=== PATIENT | female | born 1980 | race Two or more races ===

== ENCOUNTER 2017-12-04 18:00 | Emergency (ER) | payer OTHER ==
[2017-12-04 18:16] VITALS: O2SAT 99
[2017-12-04] MEDS ORDERED: NS 1,000 ML IV ONE (18:17)
--- NOTE | 2017-12-04 18:17 | EDPHY ---
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 Patient reports that she has had pain in her upper abdomen a burning sensation since yesterday. No vomiting no diarrhea. Denies chest pain or shortness of breath denies fever. She states she has had this in the past was diagnosed with gastritis. Given a prescription for Zantac however the pain is now worse. She has been taking Zantac for 2 months. She denies any bloody stools or black tarry stools. She presents to the emergency room stating that her pain is 7/10. Located mid abdomen. Burning in sensation. Past Medical History: Gastritis Past Surgical History: Social History: Denies drugs alcohol tobacco. Family History: Noncontributory ROS REVIEW OF SYSTEMS: A comprehensive 10 point review of systems is otherwise negative aside from elements mentioned in the history of present illness. Exam Constitutional appears nontoxic triage nursing summary reviewed, vital signs reviewed, awake/alert. Eyes normal conjunctivae and sclera, EOMI, PERRLA. HENT normal inspection, atraumatic, moist mucus membranes, no epistaxis, neck supple/ no meningismus, no raccoon eyes. Respiratory clear to auscultation bilaterally, normal breath sounds, no respiratory distress, no wheezing. Cardiovascular rate normal, regular rhythm, no murmur, no edema, distal pulses normal. Gastrointestinal mild tender palpation mid abdomen,, no rebound, no guarding, normal bowel sounds, no distension, no pulsatile mass. Genitourinary no CVA tenderness. Musculoskeletal no midline vertebral tenderness, full range of motion, no calf swelling, no tenderness of extremities, no meningismus, good pulses, neurovascularly intact. Skin pink, warm, & dry, no rash, skin atraumatic. Neurologic awake, alert and oriented x 3, AAOx3, moves all 4 extremities equally, motor intact, sensory intact, CN II-XII intact, normal cerebellar, normal vision, normal speech. Psychiatric normal mood/affect. Heme/Lymph/Immune no lymphadenopathy. Differential diagnosis includes but is not limited to and in no particular order : Gastritis, esophagitis, peptic ulcer disease Bowel obstruction, appendicitis , gallbladder disease, diverticulitis, colitis, enteritis, perforated viscus, gastritis, GERD, esophagitis, urinary tract infection, pyelonephritis, kidney stones Medical Decision Making: Plan for this patient IV establishment blood draw, IV Pepcid, 1 g of Carafate, GI cocktail re-evaluate. Check basic blood work. Re-evaluation: 1918: Patient re-evaluated still has ongoing abdominal pain mildly tender mid abdomen however improved after GI cocktail. Resting comfortably. CT scan abdomen pelvis with IV contrast negative for acute inflammatory process. No evidence of acute appendicitis. Called to me by Dr. Doe 2028: Re-examination at this time: Patient is resting comfortably. Abdomen is soft nontender she is not vomiting she feels much better after Carafate and GI cocktail. Blood work and CT scan have been reviewed. I will add Carafate at night. I do recommend she refrain from drinking alcohol eating spicy fatty greasy foods. I do recommend she follows up with GI. Return precautions discussed with her she has worsening abdominal pain fever vomiting she needs return. She understands. at bedside understands. Source: Patient - Personal History LMP (Females 10-55): 15-21 Days Ago Current Tetanus Diphtheria and Acellular Pertussis (TDAP): Yes - Medical/Surgical History Other PMH: gastritis - Social History Smoking Status: Never smoked Constitutional: Initial Vital Signs Temperature (C) 36.6 C 12/04/17 18:03 Heart Rate 71 12/04/17 18:03 Respiratory Rate 18 12/04/17 18:03 Blood Pressure 116/72 12/04/17 18:03 O2 Sat (%) 99 12/04/17 18:03 O2 Delivery Mode Room Air Allergies/Adverse Reactions: No Known Allergies Allergy (Unverified 12/04/17 18:16) Home Medications: Medication Instructions Recorded Ranitidine HCl [Zantac 75] 75 mg PO 12/04/17 Ranitidine HCl [Zantac] 150 mg PO DAILY #30 tablet 12/04/17 Sucralfate [Carafate 1 GM (*)] 1 gm PO ACHS #30 tab 12/04/17 Medical Decision Making - Diagnostics Imaging Results: Imaging Impressions Abdomen CT 12/04/17 19:18 Impression: 1. No localized intra-abdominal process or clear explanation for pain. No CT evidence of pancreatitis. 2. Equivocal gallbladder wall thickening. No CT evidence of acute cholecystitis. Findings discussed with Emergency Department physician, Dr. Ki Villagran on December 04, 2017 at 2017 hours. - Data Points Laboratory Results: Laboratory Results 12/04/17 18:28 12/04/17 18:28 12/04/17 12/04/17 12/04/17 20:04 18:28 18:28 WBC RBC Hgb Hct MCV MCH MCHC RDW Plt Count MPV Neut % (Auto) Lymph % (Auto) Sandoval % (Auto) Eos % (Auto) Baso % (Auto) Nucleat RBC Rel Count Absolute Neuts (auto) Absolute Lymphs (auto) Absolute Monos (auto) Absolute Eos (auto) Absolute Basos (auto) Absolute Nucleated RBC Immature Gran % Immature Gran # VBG Lactic Acid Sodium 142 mEq/L mEq/L (135-145) Potassium 3.8 mEq/L mEq/L (3.5-5.2) Chloride 102 mEq/L mEq/L (97-110) Carbon Dioxide 28 mEq/l mEq/l (22-31) Anion Gap 12 mEq/L mEq/L (8-16) BUN 8 mg/dL mg/dL (7-23) Creatinine 0.6 mg/dL mg/dL (0.6-1.0) Estimated GFR > 60 Glucose 80 mg/dL mg/dL (70-100) Calcium 9.3 mg/dL mg/dL (8.5-10.4) Total Bilirubin 0.3 mg/dL mg/dL (0.1-1.4) Conjugated Bilirubin 0.2 mg/dL mg/dL (0.0-0.5) Unconjugated Bilirubin 0.1 mg/dL mg/dL (0.0-1.1) AST 23 IU/L IU/L (14-46) ALT 35 IU/L IU/L (9-52) Alkaline Phosphatase 84 IU/L IU/L (38-126) Total Protein 7.5 g/dL g/dL (6.3-8.2) Albumin 4.3 g/dL g/dL (3.5-5.0) Lipase 74 IU/L IU/L (23-300) Beta HCG, Qual NEGATIVE Urine Color PALE YELLOW Urine Appearance CLEAR Urine pH 6.0 (5.0-7.5) Ur Specific Bradford > 1.035 H (1.002-1.030) Urine Protein NEGATIVE (NEGATIVE) Urine Ketones NEGATIVE (NEGATIVE) Urine Blood NEGATIVE (NEGATIVE) Urine Nitrate NEGATIVE (NEGATIVE) Urine Bilirubin NEGATIVE (NEGATIVE) Urine Urobilinogen NEGATIVE EU EU (0.2-1.0) Ur Leukocyte Esterase NEGATIVE (NEGATIVE) Urine Glucose NEGATIVE (NEGATIVE) 12/04/17 12/04/17 18:28 18:28 WBC 9.72 10^3/uL H 10^3/uL (3.80-9.50) RBC 5.13 10^6/uL 10^6/uL (4.18-5.33) Hgb 14.2 g/dL g/dL (12.6-16.3) Hct 42.7 % % (38.0-47.0) MCV 83.2 fL fL (81.5-99.8) MCH 27.7 pg L pg (27.9-34.1) MCHC 33.3 g/dL g/dL (32.4-36.7) RDW 13.4 % % (11.5-15.2) Plt Count 269 10^3/uL 10^3/uL (150-400) MPV 10.8 fL fL (8.7-11.7) Neut % (Auto) 59.0 % % (39.3-74.2) Lymph % (Auto) 30.3 % % (15.0-45.0) Sandoval % (Auto) 6.5 % % (4.5-13.0) Eos % (Auto) 3.4 % % (0.6-7.6) Baso % (Auto) 0.6 % % (0.3-1.7) Nucleat RBC Rel Count 0.0 % % (0.0-0.2) Absolute Neuts (auto) 5.73 10^3/uL 10^3/uL (1.70-6.50) Absolute Lymphs (auto) 2.95 10^3/uL 10^3/uL (1.00-3.00) Absolute Monos (auto) 0.63 10^3/uL 10^3/uL (0.30-0.80) Absolute Eos (auto) 0.33 10^3/uL 10^3/uL (0.03-0.40) Absolute Basos (auto) 0.06 10^3/uL 10^3/uL (0.02-0.10) Absolute Nucleated RBC 0.00 10^3/uL 10^3/uL (0-0.01) Immature Gran % 0.2 % % (0.0-1.1) Immature Gran # 0.02 10^3/uL 10^3/uL (0.00-0.10) VBG Lactic Acid 1.1 mmol/L mmol/L (0.7-2.1) Sodium Potassium Chloride Carbon Dioxide Anion Gap BUN Creatinine Estimated GFR Glucose Calcium Total Bilirubin Conjugated Bilirubin Unconjugated Bilirubin AST ALT Alkaline Phosphatase Total Protein Albumin Lipase Beta HCG, Qual Urine Color Urine Appearance Urine pH Ur Specific Bradford Urine Protein Urine Ketones Urine Blood Urine Nitrate Urine Bilirubin Urine Urobilinogen Ur Leukocyte Esterase Urine Glucose Medications Given: Discontinued Medications Al Hydroxide/Mg Hydroxide (Maalox Susp) 30 ml PO ONCE ONE Stop: 12/04/17 18:24 Last Admin: 12/04/17 18:32 Dose: 30 ml Famotidine (Pepcid) 20 mg IVP EDNOW ONE Stop: 12/04/17 18:24 Last Admin: 12/04/17 18:33 Dose: 20 mg Hyoscyamine Sulfate (Levsin, Hyomax-Sl) 0.25 mg PO ONCE ONE Stop: 12/04/17 18:24 Last Admin: 12/04/17 18:32 Dose: 0.25 mg Sodium Chloride (Ns) 1,000 mls @ 0 mls/hr IV EDNOW ONE; Wide Open PRN Reason: Protocol Stop: 12/04/17 18:18 Last Admin: 12/04/17 18:34 Dose: 1,000 mls Lidocaine (Lidocaine 2% Viscous) 15 ml PO ONCE ONE Stop: 12/04/17 18:24 Last Admin: 12/04/17 18:32 Dose: 15 ml Sucralfate (Carafate) 1 gm PO ONCE ONE Stop: 12/04/17 18:37 Last Admin: 12/04/17 19:00 Dose: 1 gm Departure - Departure Disposition: Home, Routine, Self-Care Clinical Impression: Gastritis Qualifiers: Gastritis type: unspecified gastritis Chronicity: acute Gastritis bleeding: without bleeding Qualified Code(s): K29.00 - Acute gastritis without bleeding Condition: Good Instructions: Gastritis (ED) Additional Instructions: 1. Williamson diet no spicy fatty greasy foods. 2. Zantac as prescribed. 3. Carafate as prescribed. 4. Follow up with Gastroenterology. 5. Return emergency room if you have worsening abdominal pain fever vomiting. Referrals: Carlos Oates MD [Medical Doctor] - As per Instructions Prescriptions: Ranitidine HCl [Zantac] 150 mg PO DAILY #30 tablet Sucralfate [Carafate 1 GM (*)] 1 gm PO ACHS #30 tab Print Language: Malaysian
[2017-12-04] MEDS ORDERED: MAG HYDROX/AL HYDROX/SIMETH 30 ML UDCUP PO ONE (18:23)
[2017-12-04] MEDS ORDERED: HYOSCYAMINE SULFATE 0.125 MG TAB PO ONE (18:23)
[2017-12-04] MEDS ORDERED: LIDOCAINE 2% VISCOUS 15 ML UDCUP PO ONE (18:23)
[2017-12-04] MEDS ORDERED: FAMOTIDINE 20 MG/2 ML SDV IVP ONE (18:23)
[2017-12-04] MEDS ORDERED: SUCRALFATE 1 GM TAB PO ONE (18:36)
[2017-12-04 18:45] LABS: PLATELET COUNT 269 10^3/uL (150-400)
[2017-12-04] MEDS ORDERED: IOPAMIDOL (ISOVUE-300) 100 ML BTL ONE (19:30)
[2017-12-04 20:22] VITALS: BP 109/57; PULSE 69; RESP 16; TEMP 98.1
[2017-12-04] MEDS ORDERED: SUCRALFATE 1 GM TAB PO SCH (21:00)
== END 2017-12-04 20:52 | disposition home or self-care (01) ==
DX: K29.00 Acute gastritis without bleeding (principal); E86.9 Volume depletion, unspecified
CPT/HCPCS: 96374; Q9967

== ENCOUNTER 2018-12-30 21:37 | Emergency (ER) | payer MEDICAID, OTHER ==
[2018-12-30] MEDS ORDERED: fentaNYL 100 MCG/2 ML INJ IVP ONE (21:52)
[2018-12-30] MEDS ORDERED: NS 1,000 ML IV ONE (21:52)
[2018-12-30 22:36] LABS: PLATELET COUNT 249 10^3/uL (150-400)
[2018-12-30] MEDS ORDERED: HYDROmorphONE/DILAUDID 2 MG/ML INJ IVP ONE (22:56)
[2018-12-30] MEDS ORDERED: LORazepam 2 MG/ML INJ IVP ONE (22:56)
[2018-12-30] MEDS ORDERED: HYDROmorphONE/DILAUDID 1 MG/ML INJ ONE (23:03)
--- NOTE | 2018-12-30 23:21 | EDPHY ---
H & P Stated Complaint: today, increasing lower abd pain, bleeding Time Seen by Provider: 12/30/18 21:44 HPI/ROS: CHIEF COMPLAINT: Vaginal bleeding, pelvic pain, presumed spontaneous miscarriage HISTORY OF PRESENT ILLNESS: This is a 38-year-old Somali-speaking only female who presents emergency department reporting that she is approximately 8 weeks . Last menstrual period was October 09. Patient describes have being lower abdominal pain yesterday being seen at [facility]. At that time she had an ultrasound which, if I am understanding correctly, demonstrated a failed IUP. She was told she would have a miscarriage. Today she developed significant vaginal bleeding was seen again at [facility] [place]. She does report having an ultrasound which demonstrated an intrauterine . Passing clots and questionable tissue at home. No fever, chills, chest pain, shortness of breath, palpitations, vomiting, diarrhea, urinary complaints, headache, lightheadedness. REVIEW OF SYSTEMS: A comprehensive 10 system review of systems was reviewed and is otherwise negative aside from elements mentioned in the history of present illness and medical decision making. PAST MEDICAL HISTORY: Preeclampsia with 1 of her pregnancies. SOCIAL HISTORY: Here with her . VITAL SIGNS Reviewed by me. GENERAL: Very uncomfortable appearing. Crying, lying with her legs drawn up. Complaining of lower abdominal pain, cramping, passing clots. HEENT: Atraumatic. Eyes: No icterus, no injection. Mouth: moist mucous membranes. No erythema or lesions. Neck: supple with no adenopathy. LUNGS: Clear to auscultation bilaterally, no wheezes, rhonchi or rales. CARDIAC: Regular rate and rhythm, no rubs, murmurs or gallops. ABDOMEN: Soft, lower abdominal tenderness palpation. No guarding or rebound. BACK: No CVA tenderness. PELVIC: Normal female external genitalia. Small amount of clot and blood in the vaginal vault. Cervical os has small amount of clot present. Bimanual demonstrates the os is open to fingertip. No tissue visualized. EXTREMITIES: No trauma. No edema. Range of motion is normal throughout. NEURO: Alert and oriented, grossly nonfocal. SKIN: Warm and dry, no rash. PSYCHIATRIC: Normal mentation, no agitation. - Personal History LMP (Females 10-55): Current Tetanus Diphtheria and Acellular Pertussis (TDAP): Yes - Medical/Surgical History Hx Asthma: No Hx Chronic Respiratory Disease: No Hx Diabetes: No Hx Cardiac Disease: No Hx Renal Disease: No Hx Cirrhosis: No Hx Alcoholism: No Hx HIV/AIDS: No Hx Splenectomy or Spleen Trauma: No Other PMH: gastritis, - Social History Smoking Status: Never smoked Constitutional: Initial Vital Signs Temperature (C) 36.4 C 12/30/18 21:40 Heart Rate 97 12/30/18 21:40 Respiratory Rate 17 12/30/18 21:40 Blood Pressure 137/94 H 12/30/18 21:40 O2 Sat (%) 97 12/30/18 21:40 O2 Delivery Mode Room Air Allergies/Adverse Reactions: No Known Allergies Allergy (Unverified 12/30/18 21:40) Home Medications: Medication Instructions Recorded Ranitidine HCl [Zantac 75] 75 mg PO 12/04/17 Ranitidine HCl [Zantac] 150 mg PO DAILY #30 tablet 12/04/17 Sucralfate [Carafate 1 GM (*)] 1 gm PO ACHS #30 tab 12/04/17 oxyCODONE/APAP 5/325 [Percocet 1 tab PO QID PRN #10 tab 12/31/18 5/325 (*)] Medical Decision Making ED Course/Re-evaluation: IV established. Patient received fentanyl IV. Pelvic exam is performed. Labs demonstrate beta quantitative HCG of 4405. Patient is B positive. Ultrasound: No evidence for any uterine gestation. Hypoechoic mass representing likely retained products of conception is visible in the fundus. Os is closed. No free fluid. Patient's course discussed with Dr. Allison Romero. Recommendations for continued supportive care including pain meds. Follow up with [facility] within the next 1-2 days. Differential Diagnosis: Differential diagnosis of the patient's vaginal bleeding includes dysfunctional uterine bleeding, threatened miscarriage, spontaneous miscarriage, incomplete miscarriage, ectopic . - Data Points Laboratory Results: Laboratory Results 12/30/18 22:13 12/30/18 22:13 12/30/18 12/30/18 12/30/18 22:13 22:13 22:13 WBC 10.41 10^3/uL H 10^3/uL (3.80-9.50) RBC 5.11 10^6/uL 10^6/uL (4.18-5.33) Hgb 14.2 g/dL g/dL (12.6-16.3) Hct 42.9 % % (38.0-47.0) MCV 84.0 fL fL (81.5-99.8) MCH 27.8 pg L pg (27.9-34.1) MCHC 33.1 g/dL g/dL (32.4-36.7) RDW 13.4 % % (11.5-15.2) Plt Count 249 10^3/uL 10^3/uL (150-400) MPV 10.7 fL fL (8.7-11.7) Neut % (Auto) 67.6 % % (39.3-74.2) Lymph % (Auto) 22.9 % % (15.0-45.0) Wilkin % (Auto) 6.4 % % (4.5-13.0) Eos % (Auto) 2.5 % % (0.6-7.6) Baso % (Auto) 0.5 % % (0.3-1.7) Nucleat RBC Rel Count 0.0 % % (0.0-0.2) Absolute Neuts (auto) 7.04 10^3/uL H 10^3/uL (1.70-6.50) Absolute Lymphs (auto) 2.38 10^3/uL 10^3/uL (1.00-3.00) Absolute Monos (auto) 0.67 10^3/uL 10^3/uL (0.30-0.80) Absolute Eos (auto) 0.26 10^3/uL 10^3/uL (0.03-0.40) Absolute Basos (auto) 0.05 10^3/uL 10^3/uL (0.02-0.10) Absolute Nucleated RBC 0.00 10^3/uL 10^3/uL (0-0.01) Immature Gran % 0.1 % % (0.0-1.1) Immature Gran # 0.01 10^3/uL 10^3/uL (0.00-0.10) Sodium 134 mEq/L L mEq/L (135-145) Potassium 3.4 mEq/L L mEq/L (3.5-5.2) Chloride 104 mEq/L mEq/L (97-110) Carbon Dioxide 20 mEq/l L mEq/l (22-31) Anion Gap 10 mEq/L mEq/L (6-14) BUN 10 mg/dL mg/dL (7-23) Creatinine 0.5 mg/dL L mg/dL (0.6-1.0) Estimated GFR > 60 Glucose 95 mg/dL mg/dL (70-100) Calcium 9.0 mg/dL mg/dL (8.5-10.4) Beta HCG, Quant 4405.50 mIU/mL H mIU/mL (0.00-4.83) Patient ABO/Rh B POSITIVE Medications Given: Discontinued Medications Fentanyl (Sublimaze) 75 mcg IVP EDNOW ONE Stop: 12/30/18 21:53 Last Admin: 12/30/18 22:30 Dose: 75 mcg Hydromorphone HCl (Dilaudid) 1 mg IVP EDNOW ONE Stop: 12/30/18 22:57 Last Admin: 12/30/18 23:04 Dose: 1 mg Sodium Chloride (Ns) 1,000 mls @ 0 mls/hr IV ONCE ONE; Wide Open PRN Reason: Protocol Stop: 12/30/18 21:53 Last Admin: 12/30/18 22:29 Dose: 1,000 mls Lorazepam (Ativan Injection) 0.5 mg IVP EDNOW ONE Stop: 12/30/18 22:57 Last Admin: 12/30/18 23:06 Dose: 0.5 mg Departure - Departure Disposition: Home, Routine, Self-Care Clinical Impression: Spontaneous miscarriage Condition: Good Instructions: Miscarriage (ED) Additional Instructions: Okay to take oxycodone as needed for more severe abdominal pain. You may continue to take Tylenol or ibuprofen for [id number] pain. Okay to use Zofran if needed for any nausea vomiting. Please drink plenty of fluid. You may expect further bleeding, cramping, passage of tissue. Please follow up with [facility] early next week for re-evaluation. Be seen sooner if you develop worsening pain, fainting, fevers, vomiting, or other concerns. Your quantitative HCG is 4405. Referrals: [facility] [Other] - As per Instructions
[2018-12-31] MEDS ORDERED: KETOROLAC 30 MG/1 ML SDV IVP ONE (00:45)
[2018-12-31] MEDS ORDERED: OXYCODONE/APAP 5/325MG PREPACK#4 BTL TAKEHOME ONE (00:45)
[2018-12-31 01:15] VITALS: BP 100/62
== END 2018-12-31 01:15 | disposition home or self-care (01) ==
DX: O03.9 Complete or unspecified spontaneous abortion without complication (principal); E86.9 Volume depletion, unspecified
CPT/HCPCS: 96374; J1170; J1885; J2060; J3010